=== PATIENT | male | born 1990 | race Two or more races ===

== ENCOUNTER 2021-11-09 10:38 | Emergency (ER) | payer OTHER ==
[~2021-11-09] VITALS: Ht 167.6 cm; Wt 75.0 kg
[2021-11-09] MEDS ORDERED: HYDROcodone-ACET 5/325MG TAB PO ONE (15:30)
[2021-11-09 16:41] VITALS: BP 134/83
== END 2021-11-09 16:45 ==
LOC: ER 10:38 → EEVIPCON 10:38 → ER 16:45
DX: S02.2XXA Fracture of nasal bones, initial encounter for closed fracture (principal); S02.5XXA Fracture of tooth (traumatic), initial encounter for closed fracture; S00.83XA Contusion of other part of head, initial encounter; Y04.2XXA Assault by strike against or bumped into by another person, initial encounter; Y93.89 Activity, other specified; Y92.89 Other specified places as the place of occurrence of the external cause; Y99.8 Other external cause status
CPT/HCPCS: 70450; 70486